=== PATIENT | male | born 1985 | race Caucasian/White ===

== ENCOUNTER 2024-11-05 12:16 | Day surgery (SDC) | payer OTHER ==
[~2024-11-05] VITALS: Ht 180.3 cm; Wt 75.3 kg
[2024-11-05] MEDS ORDERED: CeFAZolin Sodium 2,000 MG in NS 100 ML IV SCH (13:05)
[2024-11-05] MEDS ORDERED: CEPH500 PO (13:13)
--- NOTE | 2024-11-05 13:30 | NUR ---
PT AMBULATORY INTO [facility]. PT REPORTS 3/10 LEFT RING FINGER PAIN. HISTORY AND ALLERGIES REVIEWED. LUNGS CLEAR.PT IS CURRENT EVERY DAY SMOKER. SMOKING CESSATION DISCUSSED WITH . VS WDL. NPO STATUS CONFIRMED. RIDE HOME ARRANGED. PT BELONGINGS IN BELONGINGS BAG [facility]OW [facility].
[2024-11-05] MEDS ORDERED: Bupivacaine 0.5% HCl 5 MG/ML 30MLVIAL ONE (13:35)
[2024-11-05 13:37] VITALS: BP 147/88
[2024-11-05 13:50] VITALS: BP 139/77
[2024-11-05 14:35] VITALS: BP 137/74
--- NOTE | 2024-11-05 16:34 | NUR ---
Discharge instructions reviewed with patient. Patient verbalizes understanding. Copy given to patient to take home. Extra dressing supplies provided per physician's orders. Pt continues to deny pain. Pt ambulated out of dept, no sedation administered, local only.
== END 2024-11-05 15:01 | disposition home or self-care (01) ==
LOC: ORD 12:16 → ORSCMMR 12:16 → ORD 15:01
PROVIDERS: Orthopaedic Surgery Sports Medicine
PROC: 0JDK0ZZ Extraction of Left Hand Subcutaneous Tissue and Fascia, Open Approach (ICD-10-PCS; principal; 2024-11-05 13:30)
DX: S61.205A Unspecified open wound of left ring finger without damage to nail, initial encounter (principal); M79.642 Pain in left hand; W27.0XXA Contact with workbench tool, initial encounter; F17.210 Nicotine dependence, cigarettes, uncomplicated
CPT/HCPCS: J0690; J7120